=== PATIENT | male | born 1965 | race African-American/Black ===

== ENCOUNTER 2017-04-04 03:33 | Emergency (ER) | payer MEDICAID ==
[~2017-04-04] VITALS: Ht 175.3 cm; Wt 85.0 kg
[~2017-04-04 03:33] MED LIST: PHEN100C PO; PHEN30TA PO
[2017-04-04] MEDS ORDERED: SODIUM CHLORIDE 0.9% 1,000ML IVBOLUS ONE (04:00)
[2017-04-04] MEDS ORDERED: SODIUM CHLORIDE FLUSH 10ML SYR IVF ONE (04:00)
[2017-04-04] MEDS ORDERED: PHENYTOIN SODIUM 1,000 MG in SODIUM CHLORIDE 0.9% 100 ML IVPB ONE (04:00)
[2017-04-04] MEDS ORDERED: FILTER 0.22 MICRON IV ONE (04:00)
[2017-04-04 04:18] LABS: BASOPHILS # (AUTO) 0.03 x10^3/uL (0-0.1); BASOPHILS % (AUTO) 0 % (0-1); EOSINOPHILS # (AUTO) 0.08 x10^3/uL (0-0.4); EOSINOPHILS % (AUTO) 1 % (1-7); LYMPHOCYTES # (AUTO) 1.23 x10^3/uL (1-3.4); LYMPHOCYTES % (AUTO) 14 % (22-44); MD NO; MEAN CORPUSCULAR HGB CONC 32.9 g/dL (33.2-36.2); MEAN CORPUSCULAR VOLUME 79.1 fL (81-97); MEAN PLATELET VOLUME 8.7 fL (7.4-10.4); MONOCYTES # (AUTO) 0.76 x10^3/uL (0.2-0.8); MONOCYTES % (AUTO) 9 % (2-9); NEUTROPHILS # (AUTO) 6.58 x10^3/uL (1.8-6.8); NEUTROPHILS % (AUTO) 76 % (42-75); PLATELET COUNT 232 x10^3/uL (130-400); RED BLOOD COUNT 5.76 x10^6/uL (4.38-5.82); RED CELL DISTRIBUTION WIDTH 14.9 % (9.4-14.8)
[2017-04-04 04:19] LABS: ALBUMIN 3.3 g/dL (3.4-5.0); ANION GAP 8 mmol/L (5-15); CALCIUM 8.8 mg/dL (8.5-10.1); CHLORIDE 105 mmol/L (98-107); CREATININE 1.21 mg/dL (0.7-1.3)
[2017-04-04 04:47] VITALS: BP 134/96
[2017-04-04] MEDS ORDERED: PHEN30TA PO (04:48)
[2017-04-04] MEDS ORDERED: PHEN100C PO (04:48)
== END 2017-04-04 07:14 | disposition home or self-care (01) ==
LOC: ED 06:30
DX: G40.409 Other generalized epilepsy and epileptic syndromes, not intractable, without status epilepticus (principal); M25.512 Pain in left shoulder; N18.9 Chronic kidney disease, unspecified; F17.200 Nicotine dependence, unspecified, uncomplicated
CPT/HCPCS: 36415; 73030; 80048; 80185; 80307; 82040; 85025; 93005; 96365; 99284; J1165; J7030

== ENCOUNTER 2017-07-13 08:34 | Observation (INO) | payer MEDICAID ==
[~2017-07-13] VITALS: Ht 180.3 cm; Wt 101.2 kg
[2017-07-13] MEDS ORDERED: NITROGLYCERIN SINGLE TAB 0.4 MG SL PRN (09:00)
[2017-07-13] MEDS ORDERED: ASPIRIN 81 MG TABLET CHEW PO ONE (09:00)
[2017-07-13] MEDS ORDERED: SODIUM CHLORIDE FLUSH 10ML SYR IVF ONE (09:00)
[2017-07-13] MEDS ORDERED: ASPIRIN 81 MG TABLET CHEW ONE (09:17)
[2017-07-13] MEDS ORDERED: NITROGLYCERIN SINGLE TAB 0.4 MG SL ONE (09:18)
[2017-07-13 09:33] LABS: BASOPHILS # (AUTO) 0.03 x10^3/uL (0-0.1); BASOPHILS % (AUTO) 1 % (0-1); EOSINOPHILS # (AUTO) 0.13 x10^3/uL (0-0.4); EOSINOPHILS % (AUTO) 3 % (1-7); LYMPHOCYTES # (AUTO) 0.94 x10^3/uL (1-3.4); LYMPHOCYTES % (AUTO) 19 % (22-44); MD NO; MEAN CORPUSCULAR HEMOGLOBIN 26.1 pg (27.5-34.5); MEAN CORPUSCULAR HGB CONC 32.8 g/dL (33.2-36.2); MEAN CORPUSCULAR VOLUME 79.6 fL (81-97); MEAN PLATELET VOLUME 8.5 fL (7.4-10.4); MONOCYTES # (AUTO) 0.49 x10^3/uL (0.2-0.8); MONOCYTES % (AUTO) 10 % (2-9); NEUTROPHILS # (AUTO) 3.41 x10^3/uL (1.8-6.8); NEUTROPHILS % (AUTO) 68 % (42-75); PLATELET COUNT 192 x10^3/uL (130-400); RED BLOOD COUNT 5.26 x10^6/uL (4.38-5.82); RED CELL DISTRIBUTION WIDTH 14.7 % (9.4-14.8)
[2017-07-13 09:45] LABS: ALANINE AMINOTRANSFERASE 44 U/L (12-78); ALBUMIN 3.2 g/dL (3.4-5.0); ANION GAP 7 mmol/L (5-15); CALCIUM 8.1 mg/dL (8.5-10.1); CHLORIDE 109 mmol/L (98-107); CREATININE 1.25 mg/dL (0.7-1.3)
[2017-07-13 09:49] LABS: ALKALINE PHOSPHATASE 89 U/L (45-117); BILIRUBIN,TOTAL 0.3 mg/dL (0.2-1.0); TOTAL PROTEIN 7.3 g/dL (6.4-8.2); TROPONIN I < 0.015 ng/mL (0.000-0.045)
[2017-07-13] MEDS ORDERED: ACETAMINOPHEN 325 MG TABLET PO PRN (11:30)
[2017-07-13] MEDS ORDERED: LABETALOL 5MG/ML, 20ML IVPush PRN (11:30)
[2017-07-13] MEDS ORDERED: hydrALAzine 20 MG/ML, 1ML IVPush PRN (11:30)
[2017-07-13] MEDS ORDERED: ENOXAPARIN 40 MG/0.4 ML ONE (12:24)
[2017-07-13] MEDS: ENOXAPARIN 40 MG/0.4 ML SQ SCH (12:27)
[2017-07-13 13:02] VITALS: BP 141/88
[2017-07-13] MEDS: NICOTINE 21 MG/24 HR PATCH.TD24 TD SCH (14:58)
[2017-07-13] MEDS ORDERED: PHENOBARBITAL 30 MG TABLET PO SCH (16:00)
[2017-07-13] MEDS: PHENYTOIN 100 MG CAPSULE PO SCH ×2 (16:48→21:35)
[2017-07-13 17:45] LABS: TROPONIN I < 0.015 ng/mL (0.000-0.045)
[2017-07-13] MEDS: PHENOBARBITAL 30 MG TABLET PO SCH (21:35)
[2017-07-13 21:43] VITALS: BP 131/91
[2017-07-13 22:23] LABS: AMPHETAMINE SCREEN, URINE Positive (Negative); BARBITURATE SCREEN, URINE Negative (Negative); BENZODIAZEPINE SCREEN, URINE Negative (Negative); CANNABINOID SCREEN, URINE Negative (Negative); COCAINE SCREEN, URINE Negative (Negative); METHADONE SCREEN, URINE Negative (Negative); OPIATE SCREEN, URINE Negative (Negative)
[2017-07-14 00:56] LABS: TROPONIN I < 0.015 ng/mL (0.000-0.045)
[2017-07-14 03:24] VITALS: BP 132/87
[2017-07-14] MEDS: ASPIRIN 81 MG TABLET EC PO SCH (05:12)
[2017-07-14 05:43] LABS: CHOL/HDL RATIO 2.9; LDL/HDL RATIO 1.1 (0.5-3.0)
[2017-07-14 07:45] VITALS: BP 133/90
[2017-07-14] MEDS ORDERED: REGADENOSON 0.4 MG/5 ML SYRINGE ONE (08:23)
[2017-07-14] MEDS: PHENOBARBITAL 30 MG TABLET PO SCH ×2 (11:24→21:33)
[2017-07-14] MEDS: PHENYTOIN 100 MG CAPSULE PO SCH ×3 (11:24→21:33)
[2017-07-14] MEDS: NICOTINE 21 MG/24 HR PATCH.TD24 TD SCH (11:24)
[2017-07-14] MEDS: ENOXAPARIN 40 MG/0.4 ML SQ SCH (11:25)
[2017-07-14 14:00] VITALS: BP 128/90
[2017-07-14] MEDS: LISINOPRIL 10 MG TABLET PO SCH (17:30)
[2017-07-14] MEDS: CARVEDILOL 6.25 MG TABLET PO SCH (17:30)
[2017-07-14] MEDS ORDERED: ATORVASTATIN 40 MG TABLET PO SCH (18:00)
[2017-07-14 19:20] VITALS: BP 118/81
[2017-07-15 00:17] VITALS: BP 116/76
[2017-07-15] MEDS: ASPIRIN 81 MG TABLET EC PO SCH (06:10)
[2017-07-15] MEDS: CARVEDILOL 6.25 MG TABLET PO SCH (06:11)
[2017-07-15] MEDS ORDERED: ASPI-621 PO (06:30)
[2017-07-15] MEDS ORDERED: LISI-167 PO (06:30)
[2017-07-15] MEDS ORDERED: CARV6.2512 PO (06:30)
[2017-07-15] MEDS ORDERED: ATOR40TA78 PO (06:30)
[2017-07-15 07:00] VITALS: BP 109/77
[2017-07-15] MEDS: PHENOBARBITAL 30 MG TABLET PO SCH (09:20)
[2017-07-15] MEDS: LISINOPRIL 10 MG TABLET PO SCH (09:20)
[2017-07-15] MEDS: NICOTINE 21 MG/24 HR PATCH.TD24 TD SCH (09:20)
[2017-07-15] MEDS: PHENYTOIN 100 MG CAPSULE PO SCH (09:20)
== END 2017-07-15 12:30 | disposition home or self-care (01) ==
LOC: ED 10:01 → INTOOBSV 10:57 → EDIP 10:57 → 5SO 12:59 → DCLOUNGE 07-15 12:20
PROVIDERS: ADMIT Internal Medicine Pulmonary Disease; ATTEND Internal Medicine Pulmonary Disease
DX: R07.89 Other chest pain (principal); I13.0 Hypertensive heart and chronic kidney disease with heart failure and stage 1 through stage 4 chronic kidney disease, or unspecified chronic kidney disease; I50.40 Unspecified combined systolic (congestive) and diastolic (congestive) heart failure; N18.9 Chronic kidney disease, unspecified; E83.51 Hypocalcemia; G40.909 Epilepsy, unspecified, not intractable, without status epilepticus; I25.2 Old myocardial infarction; E78.5 Hyperlipidemia, unspecified; Z82.49 Family history of ischemic heart disease and other diseases of the circulatory system; Z72.0 Tobacco use
CPT/HCPCS: 36415; 71045; 73030; 78452; 80053; 80061; 80307; 84484; 85025; 85379; 93005; 93017; 93306; 96372; 99285; A9502; C9898; G0378; J1650; J2785

== ENCOUNTER 2018-01-18 01:01 | Emergency (ER) | payer MEDICAID ==
[~2018-01-18] VITALS: Ht 180.3 cm; Wt 86.0 kg
[~2018-01-18 01:01] MED LIST changes: +ASPI-621 PO; +ATOR40TA78 PO; +CARV6.2512 PO; +LISI-167 PO
[2018-01-18 01:04] VITALS: BP 148/93
== END 2018-01-18 01:54 | disposition home or self-care (01) ==
LOC: ED 01:17
DX: G40.909 Epilepsy, unspecified, not intractable, without status epilepticus (principal); Z72.9 Problem related to lifestyle, unspecified; I25.2 Old myocardial infarction; E78.5 Hyperlipidemia, unspecified; N18.9 Chronic kidney disease, unspecified; Z87.891 Personal history of nicotine dependence
CPT/HCPCS: 99283

== ENCOUNTER 2019-05-21 12:30 | Emergency (ER) | payer MEDICAID ==
[~2019-05-21] VITALS: Ht 180.3 cm; Wt 84.8 kg
[~2019-05-21 12:30] MED LIST changes: -ASPI-621 PO; +ASPI81TA45 PO
--- NOTE | 2019-05-21 13:14 | NUR ---
.PT HAS CO SOB FOR FEW DAYS, STATES "IT IS HARD TO CATCH BREATH". DENIES CP. PT HAS NOT BEEN COUGHING ANY SPUTUM. DENIES N/V/D. PA AT BEDSIDE. 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 VSS HX OF CHF
[2019-05-21 14:09] LABS: BASOPHILS # (AUTO) 0.03 x10^3/uL (0-0.1); BASOPHILS % (AUTO) 1 % (0-1); EOSINOPHILS # (AUTO) 0.14 x10^3/uL (0-0.4); EOSINOPHILS % (AUTO) 2 % (1-7); LYMPHOCYTES # (AUTO) 1.46 x10^3/uL (1-3.4); LYMPHOCYTES % (AUTO) 26 % (22-44); MD NO; MEAN CORPUSCULAR HEMOGLOBIN 26.6 pg (27.5-34.5); MEAN CORPUSCULAR HGB CONC 32.6 g/dL (33.2-36.2); MEAN CORPUSCULAR VOLUME 81.4 fL (81-97); MEAN PLATELET VOLUME 9.4 fL (7.4-10.4); MONOCYTES % (AUTO) 9 % (2-9); NEUTROPHILS # (AUTO) 3.51 x10^3/uL (1.8-6.8); NEUTROPHILS % (AUTO) 62 % (42-75); PLATELET COUNT 197 x10^3/uL (130-400); RED BLOOD COUNT 5.35 x10^6/uL (4.38-5.82); RED CELL DISTRIBUTION WIDTH 14.9 % (9.4-14.8)
[2019-05-21 14:09] LABS: RAPID INFLUENZA A Negative (Negative); RAPID INFLUENZA B Negative (Negative)
--- NOTE | 2019-05-21 14:15 | NUR ---
MED AT BEDSIDE DISCUSSING POC, WAITING FOR RESULTS, THEN DC
[2019-05-21 14:21] LABS: ALBUMIN 3.1 g/dL (3.4-5.0); ANION GAP 7 mmol/L (5-15); CALCIUM 8.5 mg/dL (8.5-10.1); CHLORIDE 108 mmol/L (98-107)
[2019-05-21 14:29] LABS: ALANINE AMINOTRANSFERASE 56 U/L (12-78); ALKALINE PHOSPHATASE 89 U/L (45-117); BILIRUBIN,TOTAL 0.3 mg/dL (0.2-1.0); CREATININE 1.25 mg/dL (0.7-1.3); TOTAL PROTEIN 7.3 g/dL (6.4-8.2)
[2019-05-21 16:01] VITALS: BP 148/95
--- NOTE | 2019-05-21 16:02 | NUR ---
Patient/Caregiver given discharge instructions and they have confirmed that they understand the instructions. Patient ambulatory with steady gait.
== END 2019-05-21 16:12 | disposition home or self-care (01) ==
LOC: ED 16:00
DX: J44.1 Chronic obstructive pulmonary disease with (acute) exacerbation (principal); I25.2 Old myocardial infarction; I50.9 Heart failure, unspecified; E78.5 Hyperlipidemia, unspecified; R94.31 Abnormal electrocardiogram [ECG] [EKG]; Z87.891 Personal history of nicotine dependence
CPT/HCPCS: 36415; 71046; 80053; 83880; 85025; 87400; 93005; 99285

== ENCOUNTER 2019-06-01 15:03 | Emergency (ER) | payer MEDICAID ==
[~2019-06-01] VITALS: Ht 180.3 cm; Wt 86.4 kg
[2019-06-01 16:59] VITALS: BP 136/88
--- NOTE | 2019-06-01 18:55 | NUR ---
[facility]: NOT IN LOBBY
--- NOTE | 2019-06-01 19:30 | NUR ---
NIL X 2
--- NOTE | 2019-06-01 20:00 | NUR ---
NIL X 3
== END 2019-06-01 21:09 | disposition left against medical advice (07) ==
LOC: ED 21:03
DX: R05 Cough (principal); Z53.21 Procedure and treatment not carried out due to patient leaving prior to being seen by health care provider
CPT/HCPCS: 93005

== ENCOUNTER 2019-07-07 19:09 | Emergency (ER) | payer MEDICAID ==
[~2019-07-07] VITALS: Ht 180.3 cm; Wt 84.0 kg
[2019-07-07] MEDS ORDERED: ACETAMINOPHEN 500 MG TABLET PO ONE (20:00)
--- NOTE | 2019-07-07 20:15 | NUR ---
PT TO ROOM 31 PER PEDIS WITH STRONG STEADY GAIT. PT LYING ON CART IN GOWN. RN COVERS PATIENT WITH SHEET. NO WARM BLANKETS DUE TO PATIENT HAVING A FEVER. PT C/O LEFT BREAST CHEST PAIN. PT UNABLE TO DESCRIBE THE PAIN, BUT RATES IT A 10. PT STATES "I'VE BEEN GETTING SOB EVERYDAY, AND NOW TODAY, IT JUST HURTS TO BREATH. OXYGEN LEVEL TESTED, SITTING AT 90% ON RA. PT PLACED ON MONITOR, CALL LIGHT GIVE WITH INSTRUCTIONS. LAB DRAWN AFTER IV STICK FOR PIV. MD IN TO ASSESS PATIENT, PT HAS URNINAL AND INSTRUCTIONS ON COLLECTING A SAMPLE FOR TESTING.
[2019-07-07 20:17] LABS: BASOPHILS # (AUTO) 0.03 x10^3/uL (0-0.1); BASOPHILS % (AUTO) 0 % (0-1); EOSINOPHILS # (AUTO) 0.02 x10^3/uL (0-0.4); EOSINOPHILS % (AUTO) 0 % (1-7); LYMPHOCYTES # (AUTO) 1.13 x10^3/uL (1-3.4); LYMPHOCYTES % (AUTO) 9 % (22-44); MD NO; MEAN CORPUSCULAR HEMOGLOBIN 26.3 pg (27.5-34.5); MEAN CORPUSCULAR HGB CONC 32.4 g/dL (33.2-36.2); MEAN CORPUSCULAR VOLUME 81.2 fL (81-97); MEAN PLATELET VOLUME 9.9 fL (7.4-10.4); MONOCYTES # (AUTO) 1.06 x10^3/uL (0.2-0.8); MONOCYTES % (AUTO) 9 % (2-9); NEUTROPHILS # (AUTO) 9.91 x10^3/uL (1.8-6.8); NEUTROPHILS % (AUTO) 82 % (42-75); PLATELET COUNT 195 x10^3/uL (130-400); RED BLOOD COUNT 5.86 x10^6/uL (4.38-5.82); RED CELL DISTRIBUTION WIDTH 14.5 % (9.4-14.8)
[2019-07-07 20:30] LABS: ALBUMIN 3.3 g/dL (3.4-5.0); ANION GAP 7 mmol/L (5-15); CALCIUM 9.3 mg/dL (8.5-10.1); CHLORIDE 102 mmol/L (98-107); CREATININE 1.42 mg/dL (0.7-1.3)
[2019-07-07 20:34] LABS: TROPONIN I 0.027 ng/mL (0.000-0.045)
--- NOTE | 2019-07-07 20:39 | NUR ---
RECEIVED REPORT FROM KEARA BURRELL. X-RAY COMPLETED AT THIS TIME. LAB AT FOR BLOOD DRAW. ALL MONITORS IN PLACE.
--- NOTE | 2019-07-07 20:40 | NUR ---
REPORT TO FIDELIA. LAB AT BEDSIDE ATTEMPTING TO OBTAIN BLOOD CULTURES AND LACTIC ACID. PT IS STABLE AND VERY COOPERATIVE. URINE HAS BEEN SENT.
[2019-07-07] MEDS ORDERED: ACETAMINOPHEN 500 MG TABLET ONE (20:41)
[2019-07-07] MEDS ORDERED: DEXAMETHASONE 4 MG TABLET ONE (20:42)
--- NOTE | 2019-07-07 20:54 | NUR ---
REPORT TO KEARA HELLER.
[2019-07-07 21:37] VITALS: BP 139/82
== END 2019-07-07 21:43 | disposition home or self-care (01) ==
LOC: ED 19:47
DX: J02.0 Streptococcal pharyngitis (principal); R50.9 Fever, unspecified; G40.909 Epilepsy, unspecified, not intractable, without status epilepticus; R00.0 Tachycardia, unspecified; I11.0 Hypertensive heart disease with heart failure; I50.9 Heart failure, unspecified; J44.9 Chronic obstructive pulmonary disease, unspecified; E78.5 Hyperlipidemia, unspecified; I25.2 Old myocardial infarction
CPT/HCPCS: 36415; 71045; 80048; 82040; 83605; 84145; 84484; 85025; 87040; 87880; 93005; 99285

== ENCOUNTER 2019-08-19 07:33 | Emergency (ER) | payer MEDICAID ==
[~2019-08-19] VITALS: Ht 180.3 cm; Wt 86.9 kg
--- NOTE | 2019-08-19 07:58 | NUR ---
SOB FOR TWO WEEKS AND WORSENING THE LAST FEW DAYS.
[2019-08-19 08:34] LABS: BASOPHILS # (AUTO) 0.05 x10^3/uL (0-0.1); BASOPHILS % (AUTO) 1 % (0-1); EOSINOPHILS # (AUTO) 0.38 x10^3/uL (0-0.4); EOSINOPHILS % (AUTO) 6 % (1-7); LYMPHOCYTES % (AUTO) 20 % (22-44); MD NO; MEAN CORPUSCULAR HEMOGLOBIN 26.6 pg (27.5-34.5); MEAN CORPUSCULAR HGB CONC 32.3 g/dL (33.2-36.2); MEAN CORPUSCULAR VOLUME 82.3 fL (81-97); MEAN PLATELET VOLUME 8.4 fL (7.4-10.4); MONOCYTES # (AUTO) 0.65 x10^3/uL (0.2-0.8); MONOCYTES % (AUTO) 10 % (2-9); NEUTROPHILS # (AUTO) 4.02 x10^3/uL (1.8-6.8); NEUTROPHILS % (AUTO) 63 % (42-75); PLATELET COUNT 238 x10^3/uL (130-400); RED BLOOD COUNT 4.95 x10^6/uL (4.38-5.82); RED CELL DISTRIBUTION WIDTH 15.5 % (9.4-14.8)
[2019-08-19 08:43] LABS: ALANINE AMINOTRANSFERASE 55 U/L (12-78); ALBUMIN 2.5 g/dL (3.4-5.0); ANION GAP 6 mmol/L (5-15); CHLORIDE 111 mmol/L (98-107)
[2019-08-19 08:47] LABS: ALKALINE PHOSPHATASE 88 U/L (45-117); BILIRUBIN,TOTAL 0.2 mg/dL (0.2-1.0); CREATININE 1.36 mg/dL (0.7-1.3); TROPONIN I 0.092 ng/mL (0.000-0.045)
[2019-08-19 09:01] VITALS: BP 137/107
[2019-08-19] MEDS ORDERED: ASPIRIN 81 MG TABLET CHEW ONE (09:23)
[2019-08-19] MEDS ORDERED: FUROSEMIDE 40 MG/4 ML ONE (09:23)
[2019-08-19] MEDS ORDERED: FUROSEMIDE 40 MG/4 ML IV ONE (09:30)
[2019-08-19] MEDS ORDERED: ASPIRIN 81 MG TABLET CHEW PO ONE (09:30)
--- NOTE | 2019-08-19 09:32 | NUR ---
MEDICATED NOTED ON MAY. PT SITTING UP ON EDGE OF BED AND PROVIDED URINAL. WILL CONTINUE TO MONITOR
[2019-08-19] MEDS ORDERED: TRAZODONE 50MG TABLET PO PRN ×2 (10:00→10:30)
[2019-08-19] MEDS ORDERED: hydrALAzine 20 MG/ML, 1ML IVPush PRN (10:00)
[2019-08-19] MEDS ORDERED: BUTALB/APAP/CAFFEINE 50MG/325MG/40MG PO PRN ×2 (10:00→10:30)
[2019-08-19] MEDS ORDERED: DOCUSATE 100 MG CAPSULE PO PRN ×2 (10:00→10:30)
[2019-08-19] MEDS ORDERED: POLYETHYLENE GLYCOL 17 GM PACKET PO PRN ×2 (10:00→10:30)
[2019-08-19] MEDS ORDERED: ENOXAPARIN 40 MG/0.4 ML SQ SCH ×2 (10:00→10:30)
[2019-08-19] MEDS ORDERED: LABETALOL 5MG/ML, 20ML IVPush PRN (10:00)
[2019-08-19] MEDS ORDERED: BACLOFEN 10 MG TABLET PO PRN ×2 (10:00→10:30)
[2019-08-19] MEDS ORDERED: NICOTINE 21 MG/24 HR PATCH.TD24 TD SCH ×2 (10:00→10:30)
[2019-08-19] MEDS ORDERED: GUAIFENESIN/DM 200-20MG, 10ML UDC PO PRN ×2 (10:00→10:30)
--- NOTE | 2019-08-19 10:00 | NUR ---
PT NOTED TO HAVE 600 ML IN URINAL. BREATHING SLOWED DOWN AT THIS TIME. PT DOES NOT WANT TO BE ADMITTED TO HOSPITAL. ER MD AWARE. DISCUSSED TREATMENTS THAT COULD BE PROVIDED WHEN HOSPITALIZED, ADMONISHED PT THAT HE COULD HAVE NEGATIVE CONSEQUENCES UP TO AND INCLUDING . ENCOURAGED PT TO RETURN TO ER IF HE WORSENS AND FURTHER THAT WE COULD CONTINUE HIS TREATMENT IF HE RETURNS. PT STATES HE DOESN'T WANT TO BE ADMITTED TO [facility] BUT THAT IS WHERE HIS GIRLFRIEND TOOK HIM AND THAT HE IS GOING TO [place]. PT SIGNED LEAVING HOSPITAL AGAINST MEDICAL ADVICE WITNESSED BY THIS RN
[2019-08-19 10:19] LABS: FREE T4 (FREE THYROXINE) 1.39 ng/dL (0.76-1.46)
== END 2019-08-19 10:18 | disposition left against medical advice (07) ==
LOC: ED 07:57 → EDIP 09:31 → UNDOADMIN 09:31 → ED 10:18
DX: I50.1 Left ventricular failure, unspecified (principal); R06.00 Dyspnea, unspecified; R79.89 Other specified abnormal findings of blood chemistry; I49.3 Ventricular premature depolarization; M79.10 Myalgia, unspecified site
CPT/HCPCS: 36415; 71045; 80053; 83735; 83880; 84439; 84443; 84484; 85025; 93005; 96374; 99285; J1940